=== PATIENT | female | born 1975 | race Caucasian/White ===

== ENCOUNTER → 2016-03-30 | Outpatient (CLI) | payer OTHER ==
--- NOTE | 2016-03-30 13:28 | REP ---
Digital diagnostic unilateral left breast mammography with CAD: History: Microcalcifications present laterally in the left breast on screening study done at [facility] in [place], [place] August 24, 2015. 6-month follow-up is recommended. Comparison is made with the screening study dated March 07, 2016 as well as the August 2015 study. Findings: Magnified focal spot compression CC, MLO and true MLO views of the left breast were obtained. There has been no change in the grouping of punctate microcalcifications positioned laterally in the left breast in the interval since the August 2015 prior study. Heterogeneously dense breast tissue is again seen. Impression: Stable mammographic findings. Microcalcific grouping laterally in the left breast unchanged from August 2015. BIRADS category 3 probably benign mammogram. Diagnostic unilateral left breast mammography recommended in 6 months. BI-RADS/ACR category 3 mammogram. Probably benign findings. Initial short-term followup (usually 6 month) examination. This mammogram was interpreted with the aid of an FDA-approved computer-aided detection system.. The patient states she had a clinical breast exam in over a year. The patient letter being requested is M3. Signed by Osorio Ybarra MD 03/30/2016 03:10 P
== END | disposition home or self-care (01) ==
LOC: M RAD 12:39
PROVIDERS: ATTEND Family Medicine
DX: R92.8 Other abnormal and inconclusive findings on diagnostic imaging of breast (principal); R92.0 Mammographic microcalcification found on diagnostic imaging of breast

== ENCOUNTER 2017-04-21 09:46 | Inpatient (IN) | payer OTHER ==
[2017-04-21] MEDS: miSOPROStol 25 MCG 1/4 TAB (S0191) PV (11:52)
[2017-04-21] MEDS: LR 1,000 ML IV ×2 (12:03→16:59)
[2017-04-21] MEDS: AMPICILLIN SOD 2 GM in APPROPRIATE DILUENT 20 ML IV (12:03)
[2017-04-21] MEDS: LACTATED RINGER'S 1000 ML IV (12:03)
[2017-04-21 12:04] LABS: HEMATOCRIT 35.7 % (36.0-47.0); HEMOGLOBIN 11.9 g/dl (12.0-16.0); MEAN CORPUSCULAR HEMOGLOBIN 30.1 pg (27.0-33.0); MEAN CORPUSCULAR HGB CONC 33.3 g/dl (32.0-36.5); MEAN CORPUSCULAR VOLUME 90.2 fl (80.0-96.0); PLATELET COUNT, AUTOMATED 152 10^3/uL (150-450); RED BLOOD COUNT 3.96 10^6/uL (4.00-5.40); RED CELL DISTRIBUTION WIDTH 12.6 % (11.5-14.5); WHITE BLOOD COUNT 11.9 10^3/uL (4.0-10.0)
[2017-04-21] MEDS: AMPICILLIN SOD 1 GM in APPROPRIATE DILUENT 10 ML IV ×2 (16:03→20:25)
[2017-04-21] MEDS: OXYTOCIN DRIP 30 UNITS in APPROPRIATE DILUENT 1 EA IV (16:04)
[2017-04-21] MEDS ORDERED: FENTANYL 2MCG/ML ROPIVACAINE 0.2% IN 0.9% NACL 200ML IVBAG As Ordered (20:12)
[2017-04-21] MEDS ORDERED: ONDANSETRON 4MG/2ML VIAL (J2405) IV (21:45)
[2017-04-21] MEDS ORDERED: diphenhydrAMINE INJ 50MG/ML VIAL (J1200) IV (21:45)
[2017-04-21] MEDS ORDERED: REFRIGERATOR IV KEYS XX (21:45)
[2017-04-21] MEDS: FENTANYL/ROPIVACAINE/NACL BAG 200 ML EPIDURAL (21:45)
[2017-04-21] MEDS ORDERED: EPIDURAL COMMENT XX (21:45)
[2017-04-21] MEDS ORDERED: NALOXONE INJ 0.4 MG/1 ML VIAL (J2310) IV (21:45)
[2017-04-21] MEDS ORDERED: EPIDURAL/PCA KEYS XX (21:45)
[2017-04-21] MEDS ORDERED: LACTATED RINGER'S 1000 ML IV (21:45)
[2017-04-21] MEDS ORDERED: ePHEDrine INJ 50 MG/ML VIAL IV (21:45)
[2017-04-22] MEDS: AMPICILLIN SOD 1 GM in APPROPRIATE DILUENT 10 ML IV (01:09)
[2017-04-22] MEDS: LR 1,000 ML IV (03:27)
[2017-04-22 03:28] LABS: CORD GAS ABE V -5.5; CORD GAS HCO3 V 20.9 MEQ/L; CORD GAS O2 SAT V 46.3 %; CORD GAS PH V 7.294 UNITS; CORD GAS PO2 V 22.1 mmHg; CORD GAS SBC V 18.9 MEQ/L; CORD GAS TCO2 V 22.2 MEQ/L
[2017-04-22 03:33] LABS: CORD GAS ABE A -5.9; CORD GAS HCO3 A 21.4 MEQ/L; CORD GAS PCO2 A 48.9 mmHg; CORD GAS PH A 7.259 UNITS; CORD GAS PO2 A 20.4 mmHg; CORD GAS SBC A 18.5 MEQ/L; CORD GAS TCO2 A 22.9 MEQ/L
[2017-04-22] MEDS: OXYTOCIN DRIP 30 UNITS in APPROPRIATE DILUENT 1 EA IV (03:33)
[2017-04-22] MEDS ORDERED: MOM 30ML SUSPENSION UDC PO (03:45)
[2017-04-22] MEDS ORDERED: DIBUCAINE 1% OINTMENT 30GM TOP (03:45)
[2017-04-22] MEDS ORDERED: RHOGAM 300 MCG (1500 IU) INJ (J2790) IM (03:45)
[2017-04-22] MEDS ORDERED: MEASLES,MUMPS,RUBELLA VACCINE INJ (MMR-II) (90707) SC (03:45)
[2017-04-22] MEDS: DOCUSATE SODIUM 100 MG CAP PO ×2 (07:23→21:57)
[2017-04-22] MEDS: IBUPROFEN 800 MG TAB PO ×3 (07:24→23:55)
[2017-04-22] MEDS: PRENATAL VITAMINS CHEWABLE TABLET PO (07:24)
[2017-04-22] MEDS: ACETAMINOPHEN 500 MG TAB PO (10:59)
[2017-04-23] MEDS: PRENATAL VITAMINS CHEWABLE TABLET PO (09:00)
[2017-04-23] MEDS: DOCUSATE SODIUM 100 MG CAP PO (09:00)
[2017-04-23] MEDS: IBUPROFEN 800 MG TAB PO (10:39)
== END 2017-04-23 11:20 | disposition home or self-care (01) | DRG 775 ==
LOC: M LDI 09:46 → M OBS 04-22 06:29
PROVIDERS: Obstetrics & Gynecology
PROC: 3E0P7GC Introduction of Other Therapeutic Substance into Female Reproductive, Via Natural or Artificial Opening (ICD-10-PCS; 2017-04-21)
PROC: 10907ZC Drainage of Amniotic Fluid, Therapeutic from Products of Conception, Via Natural or Artificial Opening (ICD-10-PCS; 2017-04-21)
PROC: 10E0XZZ Delivery of Products of Conception, External Approach (ICD-10-PCS; principal; 2017-04-22)
PROC: 0KQM0ZZ Repair Perineum Muscle, Open Approach (ICD-10-PCS; 2017-04-22)
DX: O99.824 Streptococcus B carrier state complicating childbirth (principal); Z3A.39 39 weeks gestation of pregnancy; O70.1 Second degree perineal laceration during delivery; Z37.0 Single live birth